=== PATIENT | male | born 1945 | race Hispanic/Latino ===

== ENCOUNTER 2024-06-10 18:07 | Emergency (ER) | payer MEDICARE, OTHER, SELFPAY ==
[2024-06-10 18:11] VITALS: BP 115/99
[2024-06-10] MEDS: GlucaGen 1 MG IV ×2 (18:28→18:52)
--- NOTE | 2024-06-10 18:31 | ED.GENMED ---
History of Present Illness
General
Chief Complaint: Swallowing Problem
Source: patient and other (Language line translator/interpreter)
Exam Limitations: none
Time Seen by Provider: 06/10/24 18:24
Nursing documentation reviewed up to this point in time: agreed with
History of Present Illness
History of Present Illness:
79-year-old male from [facility] with history of HTN, bipolar, depression is here because an hour ago while eating chicken for dinner a piece of chicken got caught in his esophagus and he is unable to swallow his secretions. He has no
respiratory embarrassment. He is able to speak.
Past History
Past History
ED Past Medical History: HTN and Psychiatric (Bipolar, depression, BPH)
Social History
Tobacco: Non-smoker
Alcohol: None
Personal: Single
Living: fpc
Review of Systems
Review of Systems
Allergies reviewed?: Yes
All Other Systems: ROS reviewed and negative except as documented in HPI and ROS
Constitutional: Denies fever
EENT: Reports other (Cannot swallow secretions)
Respiratory: Denies trouble breathing
Cardiac: Denies chest pain
ABD/GI: Denies abdominal pain or vomiting
Musculoskeletal: Denies edema
Skin: Reports no symptoms
Neurological: Reports no symptoms
Phy Exam
Physical Exam
Physical Exam:
GENERAL: No acute distress. A&Ox3. Cachectic
CONSTITUTIONAL: Afebrile.
EYES: Clear, conjunctivae normal
Neck: Supple
ENMT: moist mucus membranes, Pharynx nl, pt can speak but garbled due to esophageal obstruction, trouble swallowing secretions
CARDIOVASCULAR: Regular rate and rhythm, no murmurs, no rubs.
GI: Soft, nontender, normal BS
MUSCULOSKELETAL: Moves with ease. Well perfused.
SKIN: Warm, dry, pink
PSYCH: Normal mood and affect. Well kept, interactive and appropriate
NEUROLOGIC: Awake, alert and oriented. No focal neurological deficits
Course
Orders/Labs/Results
Orders:
Orders
06/10/24 18:25
Glucagon [GlucaGen] 1 mg .ROUTE .STK-MED ONE
06/10/24 18:28
Glucagon [GlucaGen] 1 mg IV NOW STA
06/10/24 18:51
Glucagon [GlucaGen] 1 mg IV NOW STA
Vital Signs
Initial and Last Documented VS:
Initial Vital Signs
Temp Pulse Resp BP Pulse Ox
98.8 F 80 18 115/99 98
06/10/24 18:11 06/10/24 18:11 06/10/24 18:11 06/10/24 18:11 06/10/24 18:11
Last Documented Vital Signs
Temp Pulse Resp BP Pulse Ox
98.8 F 74 18 115/99 98
06/10/24 18:11 06/10/24 18:45 06/10/24 18:11 06/10/24 18:11 06/10/24 18:45
MDM/Problems Addressed
Differential Diagnosis Includes:
Esophageal obstruction
MDM/Problems Addressed:
79-year-old male from [facility] with history of HTN, bipolar, depression is here because an hour ago while eating chicken for dinner a piece of chicken got caught in his esophagus and he is unable to swallow his secretions. He has no
respiratory embarrassment. He is able to speak.
7:15 PM
No improvement after 2 doses of glucagon
Consulted GI Dr. Villagomez who will be in
Pt informed of plan, remains stable
7:[address] Villagomez in, pt passed the obstruction, feels better, can go back to NH.
Son in room offering to take pt back to NH
Pt OOB and ambulating, swallowing liquid well.
*Critical Care Note
Total Time (30-74mins, 75-104mins- exclusive of procedures): Not Applicable
ED Attending Note
-
Portions of this chart may have been created with voice recognition software.� Occasional wrong word or��sound alike� substitutions may have occurred due to the inherent limitations of voice recognition software.
Discharge Plan
Departure
Patient Disposition: Home (Routine Discharge)
Date of Disposition: 06/10/24
Time of Disposition: 19:40
Patient with high blood pressure during this ER visit?: No
Condition: Good
Discharge Problem:
Acute esophageal obstruction
Instructions: Food Obstruction
Prescriptions:
No Action
bupropion HCl [Wellbutrin SR] 150 mg Tablet Sustained-Release 12 Hr
150 mg PO DAILY
sennosides [senna] 8.6 mg Tablet
8.6 mg PO BID
acetaminophen 325 mg Tablet
650 mg PO Q6HPRN PRN (Reason: mild pain/temp>100.4)
lidocaine 4 % Adhesive Patch,Medicated
1 patch TOPICAL DAILY
polyethylene glycol 3350 [Miralax] 17 gram Powder In Packet
17 g PO DAILY
alendronate 70 mg tablet
70 mg PO TH
olanzapine [Zyprexa] 5 mg Tablet
5 mg PO BID
magnesium hydroxide [Milk of Magnesia] 400 mg/5 mL Suspension
30 ml PO DAILYPRN PRN (Reason: if no bm in 3 days)
tamsulosin 0.4 mg capsule
0.8 mg PO DAILY
bisacodyl [Dulcolax (bisacodyl)] 10 mg Suppository
10 mg [place] DAILYPRN PRN (Reason: if mom is ineffective)
Fleet Enema 19-7 gram/118 mL Enema
118 ml [place] DAILYPRN PRN (Reason: if suppository is ineffective)
fluoxetine 10 mg capsule
10 mg PO DAILY
docusate sodium [Colace] 100 mg Capsule
100 mg PO BID
mirtazapine 15 mg Tablet
15 mg PO HS
metoprolol tartrate 25 mg Tablet
25 mg PO Q12H
calcium carbonate-vitamin D3 [Calcium 500 + D] 500 mg-10 mcg (400 unit) Tablet
1 tab PO DAILY
melatonin 5 mg Tablet,Disintegrating
5 mg PO HS
Activity Restrictions/Additional Instructions:
Mr. Escalante passed the food obstruction after two doses of Glucagon IV.
He is feeling better, drinking well.
Interventions
Interventions:
*Risk Screen - Suicide Last Done: 06/10/24 18:11
*General Assessment Last Done: 06/10/24 18:11
*Neglect/Abuse Screening Last Done: 06/10/24 18:11
ED- Fall Risk Assessment Last Done: 06/10/24 18:11
*ED COVID-19 Vaccine History Last Done: 06/10/24 18:20
*Nursing Disposition Last Done: 06/10/24 20:13
ED-EENT Assessment Last Done: 06/10/24 18:11
TL-Uwurbe-Maldpqawsr Assessment Last Done: 06/10/24 18:11
ED- Pulmonary Assessment Last Done: 06/10/24 18:11
ED- Neurological Assessment Last Done: 06/10/24 18:11
Discharge Date and Time
Discharge Date/Time: 06/10/24 20:13
Print Language: HEBREW
== END 2024-06-10 20:13 | disposition home or self-care (01) ==
LOC: EMR 18:07
PROVIDERS: EMERGENCY PHYSICIAN Emergency Medicine; FAMILY PHYSICIAN Internal Medicine
DX: K22.2 Esophageal obstruction (principal); T18.128A Food in esophagus causing other injury, initial encounter; W44.F3XA Food entering into or through a natural orifice, initial encounter; I10 Essential (primary) hypertension; N40.0 Benign prostatic hyperplasia without lower urinary tract symptoms
CPT/HCPCS: 96374; 99284; J1610

== ENCOUNTER 2024-06-11 15:14 | Observation (INO) | payer MEDICARE, OTHER, SELFPAY ==
[2024-06-11] VITALS (7 sets, daily range): BP systolic 117–169; BP diastolic 56–108; BMI 17.2
[2024-06-11] MEDS: GlucaGen 1 MG IV (13:05)
[2024-06-11 13:09] LABS: % Basophils 0.6 % (0-2); % Eosinophils 0.5 % (0-6); % Immature Granulocytes 0.2 % (0-0.5); % Lymphocytes 13.3 % (20.5-51.1); % Monocytes 7.1 % (1.7-9.3); % Neutrophils 78.3 % (42.2-75.2); Absolute Basophils 0.1 10^3/uL (0-0.2); Absolute Eosinophils 0.1 10^3/uL (0-0.7); Absolute Lymphocytes 1.4 10^3/uL (1.2-3.4); Absolute Monocytes 0.8 10^3/uL (0.1-0.6); Absolute Neutrophils 8.3 10^3/uL (1.4-6.5); Hematocrit 36.9 % (39.0-52.0); Hemoglobin 12.5 g/dL (13.0-18.0); Mean Corp Hgb Conc. 33.9 g/dL (33.0-37.0); Mean Corpuscular Hgb 31.2 pg (27.0-31.0); Mean Platelet Volume 9.8 fL (7.4-10.4); Nucleated Red Blood Cells % 0 % (-); Platelet Count 160 10^3/uL (130-400); Red Blood Cell Count 4.01 10^6/uL (4.70-6.10); Red Cell Dist. Width 14.1 % (11.5-14.5); White Blood Cell Count 10.6 10^3/uL (4.8-10.8)
[2024-06-11 13:17] LABS: ALT (SGPT) 16 U/L (0-50); AST (SGOT) 23 U/L (17-59); Alkaline Phosphatase 61 U/L (38-126); Blood Urea Nitrogen 46 mg/dl (9-20); Calcium 9.1 mg/dl (8.4-10.2); Carbon Dioxide 25 mmol/L (22-30); Chloride 105 mmol/L (98-107); Glucose 108 mg/dl (70-99); Potassium 3.9 mmol/L (3.5-5.1); Sodium 141 mmol/L (135-145); Total Bilirubin 0.7 mg/dl (0.2-1.3); Total Protein 7.1 g/dl (6.3-8.2); eGFR 43.02
[2024-06-11] MEDS: PROTONIX IV 40 MG IV (13:18)
--- NOTE | 2024-06-11 13:41 | CON.GI ---
Consultation
-
Date/Time Consultation Performed: 06/11/24
Performing Provider: Jesus Villagomez MD
Reason for Consultation: dysphagia
Medical History
Chief Complaint / HPI
Chief Complaint: dysphagia
History of Present Illness:
The patient is an 79-year-old male with past medical history as noted with recurrent transient food impactions. He is interviewed with the language line and last night with his son. He was here yesterday with food impaction that did respond to
glucagon. He states that after that had been doing well and did okay until this morning when he had again transient food impaction. On presentation the emergency room he was unable to tolerate his secretions though after glucagon again his
symptoms have resolved and is now feeling much better. He states that prior to this he had not had any dysphagia. He has had a significant amount of weight loss recently, though the son yesterday attribute this to his psychiatric hospitalizations
and depression and loss of appetite. He denies any fever, chills, chest pain or shortness of breath. He did have an endoscopy in 2020 that showed normal esophagus, diffuse atrophic mucosa in the gastric body and gastric polyp. Biopsies at that
time showed chronic inactive gastritis and were negative for H. pylori with hyperplastic polyp. Currently he is feeling well, tolerating secretions without difficulty.
Past Medical History
Past Medical History: Other (Hypertension, bipolar, depression, BPH)
Past Surgical History: None
Social History
Tobacco: Non-Smoker
Alcohol: None
Family History
Family History: Reviewed & Not Pertinent
Allergies / Home Medications
Allergy/AdvReac Type Severity Reaction Status Date / Time
No Known Allergies Allergy Verified 06/11/24 12:49
�Medication �Instructions �Recorded
acetaminophen 325 mg tablet 650 mg PO Q6HPRN PRN mild 06/10/24
pain/temp>100.4
alendronate 70 mg tablet 70 mg PO TH 06/10/24
bisacodyl 10 mg rectal suppository 10 mg [place] DAILYPRN PRN if mom is 06/10/24
(Dulcolax (bisacodyl)) ineffective
bupropion HCl 150 mg tablet,12 hr 150 mg PO DAILY 06/10/24
sustained-release (Wellbutrin SR)
calcium 500 mg (as 1 tab PO DAILY 06/10/24
carbonate)-vitamin D3 10 mcg (400
unit) tablet (Calcium 500 + D)
docusate sodium 100 mg capsule 100 mg PO BID 06/10/24
(Colace)
fluoxetine 10 mg capsule 10 mg PO DAILY 06/10/24
lidocaine 4 % topical patch 1 patch topical DAILY lower back 06/10/24
magnesium hydroxide 400 mg/5 mL 30 ml PO DAILYPRN PRN if no bm in 06/10/24
oral suspension (Milk of Magnesia) 3 days
melatonin 5 mg disintegrating 5 mg PO HS 06/10/24
tablet
metoprolol tartrate 25 mg tablet 25 mg PO Q12H 06/10/24
mirtazapine 15 mg tablet 15 mg PO HS 06/10/24
olanzapine 5 mg tablet (Zyprexa) 5 mg PO BID 06/10/24
polyethylene glycol 3350 17 gram 17 g PO DAILY 06/10/24
oral powder packet (Miralax)
sennosides 8.6 mg tablet (senna) 8.6 mg PO BID 06/10/24
sodium phosphates 19 gram-7 118 ml [place] DAILYPRN PRN if 06/10/24
gram/118 mL enema (Fleet Enema) suppository is ineffective
tamsulosin 0.4 mg capsule 0.8 mg PO DAILY 06/10/24
Review of Systems
-
All other systems: A 12 pt ROS was Negative except as stated above in HPI
Vital Signs
Temp Pulse Resp BP Pulse Ox
97.9 F 91 12 156/79 95
06/11/24 12:49 06/11/24 13:15 06/11/24 13:15 06/11/24 12:49 06/11/24 13:15
Physical Exam
Exam
General: NAD, cachectic
HEENT: MMM, anicteric, no lymphadenopathy
Heart: Regular, no murmurs
Lungs: CTA bilaterally
Abdomen: normal bowel sounds, soft, no tenderness, no rebound or guarding, no masses, bruits or ascites
Extremeties: no edema
Skin: no rashes
Results
WBC 10.6 10^3/uL (4.8-10.8) 06/11/24 12:56
Hgb 12.5 g/dL (13.0-18.0) L 06/11/24 12:56
Hct 36.9 % (39.0-52.0) L 06/11/24 12:56
MCV 92.0 fL (80.0-94.0) 06/11/24 12:56
Plt Count 160 10^3/uL (130-400) 06/11/24 12:56
Absolute Neuts (auto) 8.3 10^3/uL (1.4-6.5) H 06/11/24 12:56
Sodium 141 mmol/L (135-145) 06/11/24 12:56
Potassium 3.9 mmol/L (3.5-5.1) 06/11/24 12:56
Chloride 105 mmol/L (98-107) 06/11/24 12:56
Carbon Dioxide 25 mmol/L (22-30) 06/11/24 12:56
BUN 46 mg/dl (9-20) H 06/11/24 12:56
Creatinine 1.6 mg/dL (0.7-1.3) H 06/11/24 12:56
Calcium 9.1 mg/dl (8.4-10.2) 06/11/24 12:56
Total Bilirubin 0.7 mg/dl (0.2-1.3) 06/11/24 12:56
AST 23 U/L (17-59) 06/11/24 12:56
ALT 16 U/L (0-50) 1205/24 12:56
Alkaline Phosphatase 61 U/L (38-126) 06/11/24 12:56
Diagnostic Image Results:
Prior GI Procedures:
EGD:
2020 as described above
Colonoscopy:
Assessment / Plan
-
1. Dysphagia: Esophageal, with 2 intermittent food boluses over the past 2 days, both responded to glucagon. He denies any previous dysphagia, though again had 2 significant events in 2 days. He has lost a significant amount of weight, though
attributed to his psychiatric hospitalization and depression, though underlying malignancy is not excluded. Most common etiologies including Schatzki's ring are also possible. Given these 2 events, will observe overnight as not emergently needed,
and cannot do electively today given food today, though will plan EGD tomorrow.
-
-
Thank you for consultation and allowing me to participate in the patient's care. Please call the bss solution architect GI physician during the after hours with any questions or concerns.
--- NOTE | 2024-06-11 13:41 | ED.GENMED ---
History of Present Illness
General
Chief Complaint: Throat Problem
Source: patient
Time Seen by Provider: 06/11/24 13:03
History of Present Illness
History of Present Illness:
79-year-old male with past medical history of hypertension, bipolar disorder and depression presenting to the emergency department from [facility] for food bolus impaction within the esophagus. Patient seen here last night for the same and improved
following 2 doses of glucagon. Patient states he is not sure what he ate this morning that caused it but believes it was either chicken or pasta. Patient denies any difficulty breathing, vomiting, difficulty swallowing but does note it is
uncomfortable trying to tolerate oral secretions. Patient states he has not had any similar symptoms prior to today and yesterday. He does believe he has had an endoscopy before but is unable to recall findings from this.
Past History
Past History
ED Past Medical History: HTN and Psychiatric (Bipolar, depression, BPH)
ED Past Surgical History: None
Social History
Tobacco: Non-smoker
Alcohol: None
Drug: None
Personal: Single
Living: care home
Review of Systems
Review of Systems
All Other Systems: ROS reviewed and negative except as documented in HPI and ROS
Phy Exam
Physical Exam
Physical Exam:
GENERAL: Alert , in no apparent distress
EYE: clear conjunctiva b/l
HEAD: NCAT
ENT: mmm. tolerating oral secretions
CARDIAC: Regular rate and rhythm .
LUNGS: Clear breath sounds bilaterally, no acute respiratory distress, no wheezes/rales/rhonchi
ABDOMEN: Soft, without focal tenderness, no r/g, no cvat
NEUROLOGICAL: Alert and oriented
SKIN: Warm and dry, skin intact.
MUSCULOSKELETAL: well perfused.
PSYCH: Normal and appropriate interaction.
Scores
Heart Failure Risk
Heart Failure Risk Score: Not Applicable
Heart Score for Chest Pain Patients
STEMI patient?: Not applicable
Withdrawal Assessment of Alcohol
Withdrawal Assessment Completed?: Not applicable
Course
Orders/Labs/Results
Orders:
Orders
06/11/24 Breakfast
Clear Liquid
06/11/24 12:56
Complete Blood Count/With Diff Urgent
Comprehensive Metabolic Panel Urgent
06/11/24 13:04
Glucagon [GlucaGen] 1 mg IV NOW STA
06/11/24 13:13
Pantoprazole [Protonix IV] 40 mg IV NOW STA
06/12/24 Breakfast
NPO
Allow oral meds: Yes
Allow clear liquids: No
Abnormal Lab Results
06/11/24
12:56
RBC 4.01 L 10^6/uL
(4.70-6.10)
Hgb 12.5 L g/dL
(13.0-18.0)
Hct 36.9 L %
(39.0-52.0)
MCH 31.2 H pg
(27.0-31.0)
Absolute Neuts (auto) 8.3 H 10^3/uL
(1.4-6.5)
Absolute Monos (auto) 0.8 H 10^3/uL
(0.1-0.6)
Neutrophils % 78.3 H %
(42.2-75.2)
Lymphocytes % 13.3 L %
(20.5-51.1)
BUN 46 H mg/dl
(9-20)
Creatinine 1.6 H mg/dL
(0.7-1.3)
Glucose 108 H mg/dl
(70-99)
06/11/24 12:56
06/11/24 12:56
Vital Signs
Initial and Last Documented VS:
Initial Vital Signs
Temp Pulse Resp BP Pulse Ox
97.9 F 87 18 156/79 97
06/11/24 12:49 06/11/24 12:49 06/11/24 12:49 06/11/24 12:49 06/11/24 12:49
Last Documented Vital Signs
Temp Pulse Resp BP Pulse Ox
97.9 F 91 12 156/79 95
06/11/24 12:49 06/11/24 13:15 06/11/24 13:15 06/11/24 12:49 06/11/24 13:15
MDM/Problems Addressed
Differential Diagnosis Includes:
Food bolus impaction, esophageal narrowing, malignancy, eosinophilic esophagitis, aspiration
MDM/Problems Addressed:
79-year-old male presenting the ER for reevaluation after recurring food bolus impaction within the esophagus. Patient tolerating oral secretions but does note discomfort while doing so. Seen here yesterday and received 2 doses of glucagon with
improvement. She was not discharged home with any medications. GI was consulted yesterday as well. Due to the reoccurring nature of the symptoms will recontact GI as patient will likely need intervention this time. For symptomatic relief
additional glucagon was ordered.
*Pulse Oximetry
Patient hypoxic: no
*Critical Care Note
Total Time (30-74mins, 75-104mins- exclusive of procedures): Not Applicable
Data Reviewed
Review of Other/Old Records Reveals: Records
Source: patient and records
Patient Management
Discussion with other providers: Hospitalist and [employer]
Escalation/DeEscalation of care consider admission/obs:
Following dose of glucagon patient did note improvement. GI came to the ER to evaluate patient and since he is improved they do not feel patient needs emergent endoscopy however would like to take patient for endoscopy on a nonemergent basis.
Recommends admission to hospitalist for further evaluation of the dysphagia and they will continue to see in consult. Hospitalist team is aware and accepts for continued evaluation and treatment.
ED Attending Note
-
Portions of this chart may have been created with voice recognition software.� Occasional wrong word or��sound alike� substitutions may have occurred due to the inherent limitations of voice recognition software.
Discharge Plan
Departure
Patient Disposition: Admit
Date of Disposition: 06/11/24
Time of Disposition: 13:42
Presentation/result/management discussed w/ accepting MD/DO: Hospitalist
Discharge Problem:
Dysphagia, Food impaction of esophagus
Prescriptions:
No Action
bupropion HCl [Wellbutrin SR] 150 mg Tablet Sustained-Release 12 Hr
150 mg PO DAILY
sennosides [senna] 8.6 mg Tablet
8.6 mg PO BID
acetaminophen 325 mg Tablet
650 mg PO Q6HPRN PRN (Reason: mild pain/temp>100.4)
lidocaine 4 % Adhesive Patch,Medicated
1 patch TOPICAL DAILY
polyethylene glycol 3350 [Miralax] 17 gram Powder In Packet
17 g PO DAILY
alendronate 70 mg tablet
70 mg PO TH
olanzapine [Zyprexa] 5 mg Tablet
5 mg PO BID
magnesium hydroxide [Milk of Magnesia] 400 mg/5 mL Suspension
30 ml PO DAILYPRN PRN (Reason: if no bm in 3 days)
tamsulosin 0.4 mg capsule
0.8 mg PO DAILY
bisacodyl [Dulcolax (bisacodyl)] 10 mg Suppository
10 mg [place] DAILYPRN PRN (Reason: if mom is ineffective)
Fleet Enema 19-7 gram/118 mL Enema
118 ml IA DAILYPRN PRN (Reason: if suppository is ineffective)
fluoxetine 10 mg capsule
10 mg PO DAILY
docusate sodium [Colace] 100 mg Capsule
100 mg PO BID
mirtazapine 15 mg Tablet
15 mg PO HS
metoprolol tartrate 25 mg Tablet
25 mg PO Q12H
calcium carbonate-vitamin D3 [Calcium 500 + D] 500 mg-10 mcg (400 unit) Tablet
1 tab PO DAILY
melatonin 5 mg Tablet,Disintegrating
5 mg PO HS
Referrals:
Dario Antunez, DO [Family Provider] -
Interventions
Interventions:
*Risk Screen - Suicide Last Done: 06/11/24 12:49
*General Assessment Last Done: 06/11/24 12:49
*Neglect/Abuse Screening Last Done: 06/11/24 12:49
ED-EENT Assessment Last Done: 06/11/24 13:12
ED- Pulmonary Assessment Last Done: 06/11/24 13:12
Discharge Date and Time
Print Language: CAY[place] ISLANDER
--- NOTE | 2024-06-11 14:55 | CM ---
Patient seen at bedside in ED with patient daughter in law and physician. Patient speaks japanese primarily and Daughter in law states that he has been at [facility] this past summer for treatment of Bipolar/Depression this past summer. Patient has
been a resident at [facility] in [place] for the past month and per daughter in law the plan is to return there pending his ability to get stronger and go home to his previous apartment. CM left [facility] Dorothy at [facility] Admissions requesting
update regarding his functional status and status to return to SNF. CM will continue to follow for discharge planning needs.
Plan; return to SNF; pending clarification of functional status/LTC vs STC.
--- NOTE | 2024-06-11 14:59 | HPS.HSE ---
Family Physician
-
Family Physician: Dario Antunez, DO
Chief Complaint
-
food impaction
History of Present Illness
Patient is an 79-year-old Zimbabwean-speaking male whose [id number] is at the bedside and provided history. She stated that since March patient had a mental breakdown and has been in and out of psychiatric hospitals. He is now at [facility]
for short-term rehab in an effort to get medications correct. He came to the emergency department yesterday 06/10/2024 with a sensation of food stuck which did improve with glucagon and he was discharged. He returns today with again the same
sensation of food being stuck in his throat and the fact that he states that he cannot breathe. There is some discomfort in the throat area when this happens. He has had no previous episodes of any dysphagia or swallowing issues. Patient has had
a 30 pound weight loss since the summer through which the family attributes his depression and not eating as the cause. He was seen in consultation by GI and plan is for EGD tomorrow.
Medical History
Past Medical History
Past Medical History: Reports Other
Additional Past Medical History:
Essential hypertension
Benign prostatic hyperplasia
Bipolar disorder with depression requiring hospitalizations in the past
Past Surgical History: Reports Other
Additional Past Surgical History:
Unknown
Social History
Tobacco: Non-smoker
Alcohol: None
Drug: None
Living: Group Home
Family History
Family History: Other (Mental illness)
Allergies / Home Medications
Allergies reflects when Allergies were last updated in [employer].
Home Medications with original date entered in [employer]
Allergy/Medication List:
Allergies
Allergy/AdvReac Type Severity Reaction Status Date / Time
No Known Allergies Allergy Verified 06/11/24 12:49
Home Medications
acetaminophen 325 mg tablet 650 mg PO Q6HPRN PRN mild pain/temp>100.4 06/10/24
alendronate 70 mg tablet 70 mg PO TH osteoporosis 06/10/24
bisacodyl 10 mg rectal suppository (Dulcolax (bisacodyl)) 10 mg [place] DAILYPRN PRN if mom is ineffective 06/10/24
bupropion HCl 150 mg tablet,12 hr sustained-release (Wellbutrin SR) 150 mg PO DAILY depression/anxiety 06/10/24
calcium 500 mg (as carbonate)-vitamin D3 10 mcg (400 unit) tablet (Calcium 500 + D) 1 tab PO DAILY Supplement 06/10/24
docusate sodium 100 mg capsule (Colace) 100 mg PO BID Constipation 06/10/24
fluoxetine 10 mg capsule 10 mg PO DAILY depression/anxiety 06/10/24
lidocaine 4 % topical patch 1 patch topical DAILY lower back 06/10/24
magnesium hydroxide 400 mg/5 mL oral suspension (Milk of Magnesia) 30 ml PO DAILYPRN PRN if no bm in 3 days 06/10/24
melatonin 5 mg disintegrating tablet 5 mg PO HS sleep 06/10/24
metoprolol tartrate 25 mg tablet 25 mg PO Q12H Blood Pressure 06/10/24
mirtazapine 15 mg tablet 15 mg PO HS depression/sleep 06/10/24
olanzapine 5 mg tablet (Zyprexa) 5 mg PO BID Mental Health/Anxiety 06/10/24
polyethylene glycol 3350 17 gram oral powder packet (Miralax) 17 g PO DAILY Constipation 06/10/24
sennosides 8.6 mg tablet (senna) 8.6 mg PO BID Constipation 06/10/24
sodium phosphates 19 gram-7 gram/118 mL enema (Fleet Enema) 118 ml [place] DAILYPRN PRN if suppository is ineffective 06/10/24
tamsulosin 0.4 mg capsule 0.8 mg PO DAILY Urinary Issue 06/10/24
Review of Systems
-
History Source: Family (Pczqialk-br-jiv's telecom engineer)
Constitutional: Reports No Symptoms
EENT: Reports No Symptoms
Respiratory: Reports Trouble Breathing (When food gets stuck)
Cardiac: Reports No Symptoms
Abdomen/GI: Reports Other (Food stuck sensation)
: Reports No Symptoms
Musculoskeletal: Reports No Symptoms
Skin: Reports No Symptoms
Neurological: Reports No Symptoms
Endocrine: Reports No Symptoms
Hematologic/Lymphatic: Reports No Symptoms
Psych: Reports Depression and Other (Bipolar disorder)
Physical Exam
Vital Signs
Vital Signs
Temp Pulse Resp BP Pulse Ox
97.9 F 91 12 156/79 95
06/11/24 12:49 06/11/24 13:15 06/11/24 13:15 06/11/24 12:49 06/11/24 13:15
Physical Exam
General: Appears Chronically Ill and Cachectic (Sunken features)
HEENT: NormoCephalic and Anicteric; No Oxygen
Respiratory: Clear; No Wheezes, Rales, Rhonchi or Crackles
Cardiac: S1/S2 and Regular Rhythm
GI: Soft, Non Tender, Non Distended and Normal Bowel Sounds
Musculoskeletal: No Clubbing, No Cyanosis and No Edema
Neuro: Awake and Alert
Psych: Calm
Laboratory Results
-
06/11/24 12:56
06/11/24 12:56
Laboratory Results
Total Bilirubin 0.7 mg/dl (0.2-1.3) 06/11/24 12:56
AST 23 U/L (17-59) 06/11/24 12:56
ALT 16 U/L (0-50) 06/11/24 12:56
Alkaline Phosphatase 61 U/L (38-126) 06/11/24 12:56
Impression/Plan
-
Patient is an 79-year-old male
Food impaction/sensation of food stuck--this is the second episode in 2 days--both relieved with glucagon--plan is for clear liquids today with EGD planned for tomorrow--patient daughter states he describes symptoms of reflux--he may benefit from
PPI--would stop alendronate
Acute kidney injury versus chronic kidney disease--did not have any further labs to compare to, creatinine at this time is 1.6--it is possible that the patient has some dehydration--will give IV fluids overnight--follow labs
Anemia--likely of chronic disease--no evidence of any active bleeding
Bipolar disorder with depression--patient has been hospitalized in psychiatric facilities at least twice since the summer--currently residing at [facility] as a temporary measure--continue bupropion, fluoxetine, mirtazapine, olanzapine,
Essential hypertension--continue metoprolol with holding parameters
Benign prostatic hyperplasia--continue tamsulosin
DVT prophylaxis--sequential teds
CODE STATUS--full code
[2024-06-11] MEDS: NSS 1000 IV (18:35)
[2024-06-11] MEDS: COLACE 100 MG PO (20:17)
[2024-06-11] MEDS: SENOKOT 8.6 MG PO (20:17)
[2024-06-11] MEDS: ZYPREXA 5 MG PO (20:17)
[2024-06-11] MEDS: LOPRESSOR 25 MG PO (20:17)
[2024-06-11] MEDS: REMERON 15 MG PO (22:17)
[2024-06-11] MEDS: MELATONIN 5 MG PO (22:17)
[2024-06-12] VITALS (10 sets, daily range): BP systolic 96–167; BP diastolic 50–78; PULSE 58; O2SAT 100; BMI 17.8
[2024-06-12] MEDS: NSS 1000 IV (06:30)
[2024-06-12 09:10] LABS: Hematocrit 36.2 % (39.0-52.0); Hemoglobin 11.8 g/dL (13.0-18.0); Mean Corp Hgb Conc. 32.6 g/dL (33.0-37.0); Mean Corpuscular Hgb 31.3 pg (27.0-31.0); Mean Platelet Volume 10.6 fL (7.4-10.4); Platelet Count 132 10^3/uL (130-400); Red Blood Cell Count 3.77 10^6/uL (4.70-6.10); White Blood Cell Count 6.4 10^3/uL (4.8-10.8)
[2024-06-12] MEDS: FLOMAX 0.8 MG PO (09:13)
[2024-06-12] MEDS: LOPRESSOR 25 MG PO (09:13)
[2024-06-12] MEDS: WELLBUTRIN SR (12 hour sustained release) 150 MG PO (09:13)
[2024-06-12] MEDS: COLACE 100 MG PO (09:13)
[2024-06-12] MEDS: PROZAC 10 MG PO (09:15)
[2024-06-12] MEDS: LIDOCAINE 4% PATCH 1 PATCH TOPICAL (09:15)
[2024-06-12] MEDS: ZYPREXA 5 MG PO (09:15)
[2024-06-12] MEDS: SENOKOT 8.6 MG PO (09:15)
[2024-06-12 09:32] LABS: ALT (SGPT) 13 U/L (0-50); AST (SGOT) 19 U/L (17-59); Albumin 3.2 g/dl (3.5-5.0); Alkaline Phosphatase 58 U/L (38-126); Blood Urea Nitrogen 30 mg/dl (9-20); Calcium 8.2 mg/dl (8.4-10.2); Carbon Dioxide 23 mmol/L (22-30); Chloride 110 mmol/L (98-107); Estimated Creatinine Clearance 31 ml/min; Glucose 92 mg/dl (70-99); Magnesium 2.4 mg/dl (1.6-2.3); Sodium 141 mmol/L (135-145); Total Bilirubin 0.6 mg/dl (0.2-1.3); Total Protein 6.2 g/dl (6.3-8.2); eGFR > 60.00
--- NOTE | 2024-06-12 13:00 | PTOTSP ---
Speech Language Pathology
Pt seen for clinical bedside swallow evaluation. Evaluation completed in Pashto. Daughter in law present at bedside who reported that pt has upper and lower dentures, but typically only wears lower dentures. Pt had just finished lunch and
reported no difficulty. P.O. trials of thin liquids provided. No overt difficulty.
Recommend:
(1) IDDSI Level 6 (soft/bite-sized) and thin liquids per GI restriction
(2) Aspiration precautions: sit upright during meals and after meals, frequent sips of liquids during meals
(3) Meds as tolerated
(4) DYNAMICS AX SOLUTION ARCHITECT to sign off. Please reconsult as indicated
--- NOTE | 2024-06-12 13:46 | W.PN.HOSP.TC ---
Today's Communication/Plan
-
d/c
Assessment / Plan
Assessment / Plan
pt is an 79 year old male
Food impaction/sensation of food stuck--this is the second episode in 2 days--both relieved with glucagon--s/p EGD with tortuous esophagus--he may benefit from PPI--would stop alendronate
Acute kidney injury versus chronic kidney disease---improved, 1.6 to 1.2--did not have any further labs to compare to, creatinine at this time is 1.6--it is possible that the patient has some dehydration--will give IV fluids overnight--follow labs
Anemia--likely of chronic disease--no evidence of any active bleeding
Bipolar disorder with depression--patient has been hospitalized in psychiatric facilities at least twice since the summer--currently residing at [facility] as a temporary measure--continue bupropion, fluoxetine, mirtazapine, olanzapine,
Essential hypertension--continue metoprolol with holding parameters
Benign prostatic hyperplasia--continue tamsulosin
DVT prophylaxis--sequential teds
CODE STATUS--full code
Anticipated Discharge: Today
Subjective/Interval History
-
Date of Service: June 12, 2024
pt s/p EGD--cleared for d/c
Objective Data
-
Labs:
Laboratory Results
06/12/24
08:26
WBC 6.4
Hgb 11.8 L
Hct 36.2 L
Plt Count 132
Sodium 141
Potassium 4.0
Chloride 110 H
Carbon Dioxide 23
BUN 30 H
Creatinine 1.2
Glucose 92
Calcium 8.2 L
Total Bilirubin 0.6
AST 19
ALT 13
Alkaline Phosphatase 58
Vital Signs:
max temp for 24 hours
06/11/24
17:48
Temp 98.8 F
Vital Signs
Temp Pulse Resp BP Pulse Ox
97.9 F 80 18 138/65 100
06/12/24 11:54 06/12/24 11:54 06/12/24 11:54 06/12/24 11:54 06/12/24 11:15
I&O
06/11/24 06/12/24 06/13/24
06:59 06:59 06:59
Intake Total 120 / 120
Output Total 340 / 340
Balance -220 / -220
Review of Systems
-
Unable to obtain full review of systems at this time due to: Language Barrier
Physical Exam
-
General: No Apparent Distress, Appears Chronically Ill and Cachectic
HEENT: Normocephalic and Atraumatic
Respiratory: Clear to Auscultation; Negative Wheezes or Rhonchi
Cardiac: Regular Rhythm and S1/S2; Negative Murmur
GI: Soft, Nontender, Nondistended and Normal Bowel Sounds
Musculoskeletal: No Clubbing, No Cyanosis and No Edema
Neuro: Awake
Psych: Calm
--- NOTE | 2024-06-12 13:50 | CM ---
Patient seen at bedside with patient and physicians. Patient for discharge back to SNF. please call report to [phone] and ask for the nursing station. please fax to [phone]. CM spoke with liabraulio De La Cruz and she approved return. Patient
family to transport and CM reviewed OBS/FLORES form and form placed on chart. CM will continue to follow for discharge planning needs.
Plan; return to SNF via family transport
--- NOTE | 2024-06-12 16:47 | W.DCSUMMARY ---
Discharge Summary
Discharge Data
Date of Admission: 06/11/24
Date of Discharge: 06/12/24
-
Pending Results: No
Hospital Course
Primary care physician : Dario Antunez
Principal Discharge diagnosis : Food impaction/sensation of food stuck, acute kidney injury
Chronic Discharge diagnosis : Anemia of chronic disease, bipolar disorder with depression, essential hypertension, benign prostatic hyperplasia
Hospital Course : Patient was an 79-year-old Romanian-speaking male whose history was obtained through the patient's [id number] at the bedside. Since March, patient had a mental breakdown and had been in and out of psychiatric hospitals.
He resides at [facility] and has short-term rehab in an effort to get his medications correct. He presented to the emergency department on 06/10/2024 with a sensation of food stuck which improved with glucagon and he was discharged. He returned
again on 06/11/2024 with the same sensation and again had improvement with glucagon. Patient had a recent 30 pound weight loss since June which the family attributed to his depression and not eating. He was seen in consultation by GI and was
being placed in observation for EGD.
Problem #1: Food impaction/sensation of food stuck. Patient was seen in consultation by GI. He was given clear liquids and had upper endoscopy done on 06/12/2024. EGD showed tortuous esophagus, normal stomach, normal examined duodenum. He should
follow-up with GI for manometry testing outpatient. He has been cleared for discharge by GI.
Problem #2: Acute kidney injury. Patient creatinine was 1.6 on admission which improved to 1.2. There were no further labs to compare to but this does appear to be acute kidney injury. This improved with IV fluids.
Problem #3: All other medical issues. These include Anemia of chronic disease, bipolar disorder with depression, essential hypertension, benign prostatic hyperplasia. These medical issues were stable during his hospitalization. Medications were
continued as able.
Patient is stable for discharge back to the [place] [facility] at this time. Family will take him. If there are any questions regarding this dictation or his hospital stay, please and hesitate to call. Our office number is [phone].
Procedure findings :
EGD Impression: - Tortuous esophagus.
- Normal stomach.
- Normal examined duodenum.
- No specimens collected.
Discharge Plan
-
Patient Disposition: Custodial/SNF
Discharge Diagnosis/Procedures: Food impaction with sensation of food sticking, acute kidney injury, anemia of chronic disease, bipolar disorder with depression, essential hypertension, benign prostatic hyperplasia
Condition: Fair
Diet: Other diet
Additional Diets: Soft and bite sized with small frequent meals
Activity: As tolerated
Driving Restrictions: No driving
Bathing Restrictions: None
Referrals:
Obie Villagomez MD [Active] - in two to three weeks
Dario Antunez DO [Family Provider] - in less than 1 week
Prescriptions:
Continued
bupropion HCl [Wellbutrin SR] 150 mg Tablet Sustained-Release 12 Hr
150 mg PO DAILY
sennosides [senna] 8.6 mg Tablet
8.6 mg PO BID
acetaminophen 325 mg Tablet
650 mg PO Q6HPRN PRN (Reason: mild pain/temp>100.4)
lidocaine 4 % Adhesive Patch,Medicated
1 patch TOPICAL DAILY
polyethylene glycol 3350 [Miralax] 17 gram Powder In Packet
17 g PO DAILY
olanzapine [Zyprexa] 5 mg Tablet
5 mg PO BID
magnesium hydroxide [Milk of Magnesia] 400 mg/5 mL Suspension
30 ml PO DAILYPRN PRN (Reason: if no bm in 3 days)
tamsulosin 0.4 mg capsule
0.8 mg PO DAILY
bisacodyl [Dulcolax (bisacodyl)] 10 mg Suppository
10 mg [place] DAILYPRN PRN (Reason: if mom is ineffective)
Fleet Enema 19-7 gram/118 mL Enema
118 ml [place] DAILYPRN PRN (Reason: if suppository is ineffective)
fluoxetine 10 mg capsule
10 mg PO DAILY
docusate sodium [Colace] 100 mg Capsule
100 mg PO BID
mirtazapine 15 mg Tablet
15 mg PO HS
metoprolol tartrate 25 mg Tablet
25 mg PO Q12H
calcium carbonate-vitamin D3 [Calcium 500 + D] 500 mg-10 mcg (400 unit) Tablet
1 tab PO DAILY
melatonin 5 mg Tablet,Disintegrating
5 mg PO HS
Discontinued
alendronate 70 mg tablet
70 mg PO TH
Discharge Orders:
Discharge Patient (As Directed); Ordered 06/12/24
Ordered By: Fatoumata Abreu
Discharge Date and Time
Discharge Date/Time: 06/12/24 15:03
Print Language: ITALIAN
== END 2024-06-12 15:03 ==
LOC: 4 EAST ACU 15:14
PROVIDERS: ADMITTING PHYSICIAN Internal Medicine; CONSULT PHYSICIAN Internal Medicine Gastroenterology; EMERGENCY PHYSICIAN Emergency Medicine; FAMILY PHYSICIAN Internal Medicine
DX: R13.14 Dysphagia, pharyngoesophageal phase (principal); Q39.9 Congenital malformation of esophagus, unspecified; I10 Essential (primary) hypertension; F31.9 Bipolar disorder, unspecified; W44.F3XA Food entering into or through a natural orifice, initial encounter; T18.128A Food in esophagus causing other injury, initial encounter; N40.0 Benign prostatic hyperplasia without lower urinary tract symptoms; N17.9 Acute kidney failure, unspecified; D63.8 Anemia in other chronic diseases classified elsewhere; Z60.2 Problems related to living alone
CPT/HCPCS: 43235; 80053; 83735; 85025; 85027; 87070; 92610; 96374; 96375; 97163; 97166; 99285; G0378; J1610

== ENCOUNTER → 2024-10-12 10:28 | Outpatient (REF) | payer MEDICARE, OTHER, SELFPAY | LOC: RAD 10:28 | PROVIDERS: ATTENDING PHYSICIAN Internal Medicine Geriatric Medicine | DX: M81.0 Age-related osteoporosis without current pathological fracture (principal) | CPT/HCPCS: 77080 ==

== ENCOUNTER 2024-11-08 14:43 | Emergency (ER) | payer MEDICARE, OTHER, SELFPAY ==
[2024-11-08 14:46] VITALS: BP 95/70
--- NOTE | 2024-11-08 15:53 | ED.GENMED ---
History of Present Illness
General
Chief Complaint: Fall
Source: patient
Exam Limitations: none
Time Seen by Provider: 11/08/24 15:32
History of Present Illness
History of Present Illness:
79-year-old male presents via EMS from [facility] after an unwitnessed fall. He states he fell in the bathroom. He hit the back of his head. They noted a laceration. No anticoagulants. Patient denies neck pain but in general he notes pain all
over. This is not new.
Past History
Past History
ED Past Medical History: HTN and Psychiatric (Bipolar, depression, BPH)
ED Past Surgical History: None
Social History
Tobacco: Non-smoker
Alcohol: None
Drug: None
Personal: Single
Living: senior care
Phy Exam
Physical Exam
Physical Exam:
General: Well-appearing male no acute respiratory distress
HEENT normocephalic 2 cm left occipital scalp laceration pupils equal round reactive to light
Musculoskeletal good range of motion all extremities cervical spine nontender
Neurologic: Alert oriented no facial asymmetry good strength
Abdomen is soft nontender
Extremities: No cyanosis
Skin warm no rash
Course
Orders/Labs/Results
Orders:
Orders
11/08/24 14:45
CT Head W/o Iv Contrast Urgent
Comment:
Reason For Exam: fall with head injury
Vital Signs
Initial and Last Documented VS:
Initial Vital Signs
Temp Pulse Resp BP Pulse Ox
98.7 F 93 18 95/70 98
11/08/24 14:46 11/08/24 14:46 11/08/24 14:46 11/08/24 14:46 11/08/24 14:46
Last Documented Vital Signs
Temp Pulse Resp BP Pulse Ox
98.7 F 93 18 95/70 98
11/08/24 14:46 11/08/24 14:46 11/08/24 14:46 11/08/24 14:46 11/08/24 14:46
MDM/Problems Addressed
Differential Diagnosis Includes:
Fall with laceration to scalp. Consider skull fracture versus intracranial hemorrhage. CT of the head was ordered and is reviewed and is negative for acute traumatic injury. The wound was cleansed with saline solution anesthetized with 1%
lidocaine and closed with skin carmen. 3 skin carmen were required to do so. Please note I did use the language line educational aide during this process.
*Critical Care Note
Total Time (30-74mins, 75-104mins- exclusive of procedures): Not Applicable
ED Attending Note
-
Portions of this chart may have been created with voice recognition software.� Occasional wrong word or��sound alike� substitutions may have occurred due to the inherent limitations of voice recognition software.
Discharge Plan
Departure
Patient Disposition: Home (Routine Discharge)
Date of Disposition: 11/08/24
Time of Disposition: 15:55
Patient with high blood pressure during this ER visit?: No
Discharge Problem:
Laceration
Instructions: Laceration Repair With Carmen (DC)
Prescriptions:
No Action
bupropion HCl [Wellbutrin SR] 150 mg Tablet Sustained-Release 12 Hr
150 mg PO DAILY
sennosides [senna] 8.6 mg Tablet
8.6 mg PO BID
acetaminophen 325 mg Tablet
650 mg PO Q6HPRN PRN (Reason: mild pain/temp>100.4)
lidocaine 4 % Adhesive Patch,Medicated
1 patch TOPICAL DAILY
polyethylene glycol 3350 [Miralax] 17 gram Powder In Packet
17 g PO DAILY
olanzapine [Zyprexa] 5 mg Tablet
5 mg PO BID
magnesium hydroxide [Milk of Magnesia] 400 mg/5 mL Suspension
30 ml PO DAILYPRN PRN (Reason: if no bm in 3 days)
tamsulosin 0.4 mg capsule
0.8 mg PO DAILY
bisacodyl [Dulcolax (bisacodyl)] 10 mg Suppository
10 mg [place] DAILYPRN PRN (Reason: if mom is ineffective)
Fleet Enema 19-7 gram/118 mL Enema
118 ml [place] DAILYPRN PRN (Reason: if suppository is ineffective)
fluoxetine 10 mg capsule
10 mg PO DAILY
docusate sodium [Colace] 100 mg Capsule
100 mg PO BID
mirtazapine 15 mg Tablet
15 mg PO HS
metoprolol tartrate 25 mg Tablet
25 mg PO Q12H
calcium carbonate-vitamin D3 [Calcium 500 + D] 500 mg-10 mcg (400 unit) Tablet
1 tab PO DAILY
melatonin 5 mg Tablet,Disintegrating
5 mg PO HS
Referrals:
NONE,* [Family Provider] -
Activity Restrictions/Additional Instructions:
Have carmen removed in 7 days. Ice to the sore spot.
Interventions
Interventions:
*Risk Screen - Suicide Last Done: 11/08/24 14:51
*General Assessment Last Done: 11/08/24 14:51
*Neglect/Abuse Screening Last Done: 11/08/24 14:51
*ED- Fall Risk Assessment Last Done: 11/08/24 15:24
*ED COVID-19 Vaccine History Last Done: 11/08/24 14:51
ED-Musculoskeletal Assessment Last Done: 11/08/24 15:24
ED- Neurological Assessment Last Done: 11/08/24 15:24
ED-Skin Assessment Last Done: 11/08/24 15:24
Discharge Date and Time
Print Language: TAJIK
== END 2024-11-08 16:27 | disposition home or self-care (01) ==
LOC: EMR 14:43
PROVIDERS: EMERGENCY PHYSICIAN Emergency Medicine
DX: S01.01XA Laceration without foreign body of scalp, initial encounter (principal); W18.30XA Fall on same level, unspecified, initial encounter; Y92.89 Other specified places as the place of occurrence of the external cause; I10 Essential (primary) hypertension; F31.9 Bipolar disorder, unspecified; N40.0 Benign prostatic hyperplasia without lower urinary tract symptoms; F32.A Depression, unspecified
CPT/HCPCS: 99284; 12001; 70450

== ENCOUNTER 2024-12-01 04:44 | Emergency (ER) | payer MEDICARE, OTHER, SELFPAY ==
[2024-12-01 05:06] VITALS: BP 112/80
--- NOTE | 2024-12-01 05:14 | EDRN ---
Through labor gang supervisor, pt says he was touching his penis and when he went to orgasm, nothing came out. Pt says he kept trying but nothing came out 'I'm a serious man but I wanted to have an orgasm.' Additionally, pt was putting his finger in his
rectum while masturbating and said stool would not come out. Pt says he used a broom and tried to get stool out but says he did not put the broom in his rectum. Pt told labor gang supervisor the stool was 'very close' so he used his fingers. Pt noted blood
which prompted him to ask for help from staff which he refers to as neighbors. Pt says he is here because he cannot have a bowel movement. He says last BM was 'today at night' and was normal. Pt reportedly only put pressure on his rectum with the
broom. Pt thinks it is 2055 and he is in [facility].
--- NOTE | 2024-12-01 06:35 | ED.GENMED ---
History of Present Illness
General
Chief Complaint: Bowel Problem
Source: patient, ambulance crew and assisted
Exam Limitations: none and other (spanish interpreter/translator used)
Time Seen by Provider: 12/01/24 06:05
Nursing documentation reviewed up to this point in time: agreed with
History of Present Illness
History of Present Illness:
79-year-old male presenting to the emergency department today with concerns of constipation. He claims that he had friends at his home try to help him have a bowel movement and with stool to the rectum. He was unable to have bowel movement
prompting come to the ER. Noticed a small mount of blood as well. Denies any ongoing abdominal pain nausea vomiting or additional concerns otherwise. No falls.
Past History
Past History
ED Past Medical History: HTN and Psychiatric (Bipolar, depression, BPH)
ED Past Surgical History: None
Social History
Tobacco: Non-smoker
Alcohol: None
Drug: None
Personal: Single
Living: assisted
Review of Systems
Review of Systems
Allergies reviewed?: Yes
All Other Systems: ROS reviewed and negative except as documented in HPI and ROS
Phy Exam
Physical Exam
Physical Exam:
GENERAL: Alert , in no apparent distress
EYE: pupils equal and reactive
NECK: Supple, no significant adenopathy.
ENT: o/p clr, mmm.
CARDIAC: Regular rate and rhythm .
LUNGS: Clear breath sounds bilaterally, no acute respiratory distress, no wheezes/rales/rhonchi
ABDOMEN: Soft, without focal tenderness, no r/g, no cvat rectal examination with external hemorrhoids no active bleeding noted brown stool present.
NEUROLOGICAL: Alert and oriented, no focal neuro deficits
SKIN: Warm and dry, skin intact.
MUSCULOSKELETAL: No edema, well perfused.
PSYCH: Normal and appropriate interaction.
Course
Orders/Labs/Results
Orders:
Orders
12/01/24 05:24
CR Obstruct Series W/pa Chest Urgent
Comment:
Reason For Exam: constipation. rectal pain. (?)rectal fb
Vital Signs
Initial and Last Documented VS:
Initial Vital Signs
Pulse Resp Pulse Ox
107 11 98
12/01/24 05:00 12/01/24 05:00 12/01/24 05:00
Last Documented Vital Signs
Temp Pulse Resp BP Pulse Ox
98.7 F 98 16 118/78 97
12/01/24 05:06 12/01/24 09:01 12/01/24 09:01 12/01/24 09:01 12/01/24 09:01
MDM/Problems Addressed
MDM/Problems Addressed:
79-year-old male presenting to the emergency department from nursing facility initially told him he had concern of fall but he denied this being the actual case. He claims that his friends were trying to help him with stool in the rectum and felt
that he was constipated. No pain at this point last bowel movement was yesterday. Vital signs normal on my assessment. He is in no distress. Abdomen soft. Rectal examination without emergent findings. No large amount of bleeding described.
Does have hemorrhoids that could explain the bleeding. Stable for discharge and close monitor return precautions given.
*Critical Care Note
Total Time (30-74mins, 75-104mins- exclusive of procedures): Not Applicable
ED Attending Note
-
Portions of this chart may have been created with voice recognition software.� Occasional wrong word or��sound alike� substitutions may have occurred due to the inherent limitations of voice recognition software.
Discharge Plan
Departure
Patient Disposition: Home (Routine Discharge)
Date of Disposition: 12/01/24
Time of Disposition: 06:35
Patient with high blood pressure during this ER visit?: No
Condition: Good
Covid-19: Not Applicable
Discharge Problem:
Constipation
Instructions: Constipation, Adult (DC)
Prescriptions:
New
polyethylene glycol 3350 [ClearLax] 17 gram/dose powder
4 g PO DAILY Qty: 119 0RF
No Action
sennosides [senna] 8.6 mg Tablet
8.6 mg PO BID
acetaminophen 325 mg Tablet
650 mg PO Q6HPRN PRN (Reason: mild pain/temp>100.4)
polyethylene glycol 3350 [Miralax] 17 gram Powder In Packet
17 g PO DAILYPRN PRN (Reason: Constipation)
tamsulosin 0.4 mg capsule
0.8 mg PO DAILY
bisacodyl [Dulcolax (bisacodyl)] 10 mg Suppository
10 mg [place] DAILYPRN PRN (Reason: if mom is ineffective)
Fleet Enema 19-7 gram/118 mL Enema
118 ml [place] DAILYPRN PRN (Reason: if suppository is ineffective)
fluoxetine 10 mg capsule
10 mg PO DAILY
docusate sodium [Colace] 100 mg Capsule
100 mg PO BID
mirtazapine 15 mg Tablet
15 mg PO HS
metoprolol tartrate 25 mg Tablet
25 mg PO Q12H
alendronate 70 mg Tablet
70 mg PO TU
clonazepam [Klonopin] 0.5 mg Tablet
0.5 mg PO BID
olanzapine [Zyprexa] 5 mg Tablet
5 mg PO DAILY
loperamide 2 mg Tablet
2 mg PO Q8HPRN PRN (Reason: diarrhea)
levothyroxine 25 mcg Tablet
25 mcg PO DAILY
calcium carbonate 600 mg calcium (1,500 mg) Tablet
1,200 mg PO DAILY
magnesium hydroxide [Milk of Magnesia] 400 mg/5 mL Suspension
30 ml PO DAILYPRN PRN (Reason: if no BM in 3 days)
cholecalciferol (vitamin D3) 10 mcg (400 unit) Capsule
20 mcg PO DAILY
bupropion HCl [Wellbutrin XL] 300 mg Tablet Extended Release 24 Hr
300 mg PO DAILY
Referrals:
Dario Antunez, DO [Family Provider] -
Activity Restrictions/Additional Instructions:
You came to the emergency department today with concerns of constipation and rectal issue. Please use the bowel regiment, MiraLAX and drink plenty of fluids. If you have any progressive symptoms pain or worsening bleeding return to the ER for
further assessment.
Interventions
Interventions:
*Risk Screen - Suicide Last Done: 12/01/24 05:06
*General Assessment Last Done: 12/01/24 05:06
*Neglect/Abuse Screening Last Done: 12/01/24 05:06
*ED- Fall Risk Assessment Last Done: 12/01/24 05:35
*ED COVID-19 Vaccine History Last Done: 12/01/24 09:02
*Nursing Disposition Last Done: 12/01/24 09:02
AZ-Emnuml-Umrjqhlafs Assessment Last Done: 12/01/24 05:35
Discharge Date and Time
Discharge Date/Time: 12/01/24 09:03
Print Language: [place]
--- NOTE | 2024-12-01 06:53 | EDRN ---
Report called to [facility]. Informed pt was given a fleets enema with results prior to being sent to ED.
[2024-12-01 09:01] VITALS: BP 118/78
== END 2024-12-01 09:03 | disposition home or self-care (01) ==
LOC: EMR 04:44
PROVIDERS: EMERGENCY PHYSICIAN Emergency Medicine; FAMILY PHYSICIAN Internal Medicine
DX: K59.00 Constipation, unspecified (principal); I10 Essential (primary) hypertension; F31.9 Bipolar disorder, unspecified; N40.0 Benign prostatic hyperplasia without lower urinary tract symptoms; K64.9 Unspecified hemorrhoids
CPT/HCPCS: 99283; 74022

== ENCOUNTER 2025-02-10 16:32 | Emergency (ER) | payer MEDICARE, OTHER, SELFPAY ==
[2025-02-10 16:50] VITALS: BP 81/59
[2025-02-10 16:54] VITALS: BP 80/56
[2025-02-10 17:21] VITALS: BP 118/69
[2025-02-10 17:30] LABS: Hematocrit 34.8 % (39.0-52.0); Hemoglobin 11.7 g/dL (13.0-18.0); Mean Corp Hgb Conc. 33.6 g/dL (33.0-37.0); Mean Corpuscular Volume 93.3 fL (80.0-94.0); Nucleated Red Blood Cells % 0 % (-); Platelet Count 174 10^3/uL (130-400); Red Cell Dist. Width 12.9 % (11.5-14.5)
[2025-02-10 17:37] VITALS: BMI 17.6
[2025-02-10 17:50] LABS: ALT (SGPT) 16 U/L (0-50); AST (SGOT) 22 U/L (17-59); Albumin 3.9 g/dl (3.5-5.0); Alkaline Phosphatase 65 U/L (38-126); Blood Urea Nitrogen 41 mg/dl (9-20); Calcium 9.3 mg/dl (8.4-10.2); Carbon Dioxide 26 mmol/L (22-30); Chloride 111 mmol/L (98-107); Estimated Creatinine Clearance 29 ml/min; Glucose 133 mg/dl (70-99); Potassium 4.2 mmol/L (3.5-5.1); Sodium 144 mmol/L (135-145); Total Protein 6.9 g/dl (6.3-8.2); eGFR 50.49
[2025-02-10 17:51] VITALS: BP 146/72
[2025-02-10 18:00] VITALS: BP 146/72
[2025-02-10] MEDS: NSS 1000 IV (18:18)
[2025-02-10 18:43] LABS: Urine Character Clear (Clear)
[2025-02-10 19:00] VITALS: BP 142/67
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
--- NOTE | 2025-02-10 19:37 | PHANOTE ---
med rec note- patient missing even number on his medication list 2 4 6 8. awaiting papers to faxed over
== END 2025-02-10 22:30 | disposition short-term general hospital (02) ==
LOC: EMR 16:32
PROVIDERS: EMERGENCY PHYSICIAN Student in an Organized Health Care Education/Training Program; FAMILY PHYSICIAN Internal Medicine
DX: S12.300A Unspecified displaced fracture of fourth cervical vertebra, initial encounter for closed fracture (principal); S00.31XA Abrasion of nose, initial encounter; F03.93 Unspecified dementia, unspecified severity, with mood disturbance; W19.XXXA Unspecified fall, initial encounter; I10 Essential (primary) hypertension; F31.9 Bipolar disorder, unspecified; N40.0 Benign prostatic hyperplasia without lower urinary tract symptoms
CPT/HCPCS: 99291; 96360; 70450; 72125; 73130; 80053; 81003; 85025

== ENCOUNTER 2025-03-11 17:43 | Emergency (ER) | payer MEDICARE, OTHER, SELFPAY ==
[2025-03-11 17:47] VITALS: BP 118/59
[2025-03-11 17:58] VITALS: BMI 15.8
--- NOTE | 2025-03-11 18:00 | EDRN ---
Pt was not answering this RNs questions when asked how he cut his fingers. Pt also not answering questions about tetanus status. Esthetician/Spa Coordinator COURTNEY [email or web address] Agusto was called and used and pt was not answering what the bakery helper was asking.
--- NOTE | 2025-03-11 21:04 | ED.GENMED ---
History of Present Illness
General
Chief Complaint: Skin Surface Trauma
Source: patient and other (Certified Medical Records Coder used for Kyrgyz via iPad)
Exam Limitations: none
Time Seen by Provider: 03/11/25 20:00
Nursing documentation reviewed up to this point in time: agreed with
History of Present Illness
History of Present Illness:
The patient is an 79-year-old man with a past medical history of bipolar disorder who arrives from [facility] after cutting his right hand accidentally just prior to arrival. Patient reports he did not fall or hit his head. Patient reports that he
was using something to fix his shoe and it cut his 3rd and 4th fingers of his right hand. Patient denies weakness and numbness of his right hand. Patient denies neck pain, back pain abdominal pain. It is unclear when patient's last tetanus shot
was so upon discharge, we will let [facility] know that he needs a tetanus shot if he has not had 1 recently. For now we will hold off on tetanus shot because we do not know the status.
Past History
Past History
ED Past Medical History: HTN and Psychiatric (Bipolar, depression, BPH)
ED Past Surgical History: Other
Social History
Tobacco: Non-smoker
Alcohol: None
Drug: None
Personal: Single
Living: snf
Employment: Other
Family History
Family History: Other
Review of Systems
Review of Systems
Allergies reviewed?: Yes
All Other Systems: ROS reviewed and negative except as documented in HPI and ROS
Constitutional: Reports no symptoms
EENT: Reports no symptoms
Respiratory: Reports no symptoms
Cardiac: Reports no symptoms
ABD/GI: Reports no symptoms
: Reports no symptoms
Musculoskeletal: Reports no symptoms
Skin: Reports other
Neurological: Reports no symptoms
Endocrine: Reports no symptoms
Hematologic/Lymphatic: Reports no symptoms
Psychiatric: Reports no symptoms
Phy Exam
Physical Exam
Physical Exam:
Physical Exam
General: no apparent distress, not acutely ill. Atraumatic appearing face and head
Neck: supple. Supple
Heart: s1/s2 regular rate and rhythm, no murmur. equal radial pulses.
Lungs: no acute respiratory distress.
Abdomen: Soft
Neuro: alert and oriented. no focal neurological deficits. 5 out of 5 strength in all extremities
Skin: 2 cm laceration across DIP joint of palmar aspect of third right finger. Small skin tear dorsal aspect of fourth finger
Psychiatric: well kept. Anxious but consolable
Extremities: No bony tenderness of upper or lower extremities.
Course
Orders/Labs/Results
Orders:
Orders
03/11/25 21:06
Cephalexin Monohydrate [Keflex] 250 mg PO NOW STA
03/11/25 21:17
Olanzapine [Zyprexa] 5 mg PO NOW STA
03/11/25 21:18
Clonazepam [Klonopin] 0.5 mg PO NOW STA
Vital Signs
Initial and Last Documented VS:
Initial Vital Signs
Temp Pulse Resp BP Pulse Ox
98.5 F 78 16 118/59 100
03/11/25 17:47 03/11/25 17:47 03/11/25 17:47 03/11/25 17:47 03/11/25 17:47
Last Documented Vital Signs
Temp Pulse Resp BP Pulse Ox
98.5 F 78 16 118/59 100
03/11/25 17:47 03/11/25 17:47 03/11/25 17:47 03/11/25 17:47 03/11/25 17:47
Procedures
Laceration Closure
Right Third Finger:
Status of Wound: clean and imbedded foreign material
Size of Wound in cm: 2
Description of Wound Edges: sharp
Preparation: cleaned with saline
Anesthesia: Digital-Regional (Digital block to base of third right finger using 1% lidocaine with epi)
Revision/Debridement: irrigate-direct pressure
Wound exploration: explored to base- no FB
Type of Closure: single layer closure
Skin Closure Material: 6-0 nylon
Number of sutures: 5
MDM/Problems Addressed
Differential Diagnosis Includes:
Possible fall with closed head injury, right hand contusion, foreign body of right finger, right finger laceration
MDM/Problems Addressed:
Patient presents with acute laceration and skin tear of right sided fingers
Chronic conditions affecting care:
Bipolar disorder
Chronic conditions affecting care: Psychiatric illness
Acute Exacerbation and/or Progression of Chronic Illness:
Patient is acutely anxious, however, he is consolable. We will proceed with giving him his normal night meds of Zyprexa and Klonopin
Acute Exacerbation and/or Progression of Chronic Illness: Psychiatric illness
*Pulse Oximetry
SaO2: 100
Oxygen Mode of Delivery: Room air
Patient hypoxic: no
Comment: Not hypoxic
*EKG
Interpreted by ED Provider?: NA
*Grey Goods Marker Interpretation
Rate: Grey Goods Marker- N/A
*Critical Care Note
Total Time (30-74mins, 75-104mins- exclusive of procedures): Not Applicable
Data Reviewed
Review of Other/Old Records Reveals: Radiology Studies (Patient suffered C4 fracture 02/2025)
Source: patient and other (Certified Medical Records Coder)
ED Attending Note
-
Portions of this chart may have been created with voice recognition software.� Occasional wrong word or��sound alike� substitutions may have occurred due to the inherent limitations of voice recognition software.
Discharge Plan
Departure
Patient Disposition: Home (Routine Discharge)
Date of Disposition: 03/11/25
Time of Disposition: 21:03
Patient with high blood pressure during this ER visit?: No
Condition: Good
Covid-19: Not Applicable
Discharge Problem:
Finger laceration, Skin tear
Instructions: Laceration Repair With Stitches (DC)
Prescriptions:
New
cephalexin 250 mg capsule
250 mg PO TID 3 Days Qty: 9 0RF
No Action
sennosides [senna] 8.6 mg Tablet
8.6 mg PO BID
acetaminophen 325 mg Tablet
650 mg PO Q6HPRN PRN (Reason: mild pain/temp>100.4)
tamsulosin 0.4 mg capsule
0.8 mg PO DAILY
olanzapine [Zyprexa] 5 mg Tablet
5 mg PO DAILY
bupropion HCl [Wellbutrin XL] 300 mg Tablet Extended Release 24 Hr
300 mg PO DAILY
levothyroxine [Synthroid] 25 mcg Tablet
25 mcg PO DAILY
mirtazapine 15 mg Tablet
15 mg PO HS
fluoxetine 20 mg Capsule
20 mg PO DAILY
metoprolol tartrate 25 mg Tablet
25 mg PO BID
polyethylene glycol 3350 [ClearLax] 17 gram/dose powder
17 g PO DAILY
loperamide 2 mg Capsule
2 mg PO Q8HPRN PRN (Reason: diarrhea)
clonazepam [Klonopin] 0.5 mg Tablet
0.5 mg PO BID
magnesium hydroxide [Milk of Magnesia] 400 mg/5 mL Suspension
2,400 mg PO DAILYPRN PRN (Reason: if no bm by 3rd day)
Fleet Enema 19-7 gram/118 mL Enema
118 ml [place] DAILYPRN PRN (Reason: if no bm aftr dulcolax)
docusate sodium [Colace] 100 mg Capsule
100 mg PO BID
cholecalciferol (vitamin D3) [Vitamin D3] 10 mcg (400 unit) Tablet
20 mcg PO DAILY
Referrals:
Dario Antunez DO [Family Provider, Internal Medicine]
Activity Restrictions/Additional Instructions:
Cruz will need the 5 sutures in his right middle finger removed in about 7-8 days. Please keep his bandage (on his right hand) dry and intact for 48 hours. After that, please apply an antibiotic ointment and bandage to each finger wound on a
daily basis until skin is closed and healed
Interventions
Interventions:
*Risk Screen - Suicide Last Done: 03/11/25 17:58
*General Assessment Last Done: 03/11/25 17:58
*Neglect/Abuse Screening Last Done: 03/11/25 17:58
*ED- Fall Risk Assessment Last Done: 03/11/25 17:58
*ED COVID-19 Vaccine History Last Done: 03/11/25 17:58
ED-Skin Assessment Last Done: 03/11/25 18:13
Discharge Date and Time
Print Language: SAMMARINESE
[2025-03-11] MEDS: KEFLEX 250 MG PO (21:22)
[2025-03-11] MEDS: ZYPREXA 5 MG PO (21:22)
[2025-03-11] MEDS: KLONOPIN 0.5 MG PO (21:22)
[2025-03-11 22:20] VITALS: BP 110/68
== END 2025-03-11 22:49 | disposition home or self-care (01) ==
LOC: EMR 17:43
PROVIDERS: EMERGENCY PHYSICIAN Emergency Medicine; FAMILY PHYSICIAN Internal Medicine
DX: S61.212A Laceration without foreign body of right middle finger without damage to nail, initial encounter (principal); S61.214A Laceration without foreign body of right ring finger without damage to nail, initial encounter; W27.8XXA Contact with other nonpowered hand tool, initial encounter; I10 Essential (primary) hypertension; F31.9 Bipolar disorder, unspecified; Z60.3 Acculturation difficulty
CPT/HCPCS: 12001; 99283